=== PATIENT | female | born 1950 | race Caucasian/White ===

== ENCOUNTER 2016-06-04 07:04 | Day surgery (SDC) | payer BC ==
--- NOTE | ~2016-06-04 | EGD ---
EGD REPORT [facility] [address] [place] [address] NAME: SWATI HUMPHRIES : 54 STATUS : REG [facility] [place] PAT#: [id number] AGE: 65 ADM/REG DATE : 06/04/16 MR#: [id number] REPORT SERV DATE: 06/04/16 DICTATED BY: COURTNEY REAVES DATE: 06/04/16 REPORT STATUS : Draft TRANSCRIBED BY: [employer] DATE: 06/04/16 [facility] Patient Name: Swati Humphries Date of : 1950 Attending MD: COURTNEY REAVES MD Procedure Date No Time: 06/04/2016 Procedure: Colonoscopy Indications: Screening for colorectal malignant neoplasm Referring MD: ESPERANZA COOL MD Medicines: as per anesthesia Complications: No immediate complications. Procedure: Pre-Anesthesia Assessment: - ASA Grade Assessment: II - A patient with mild systemic disease. After I obtained informed consent, the scope was passed under direct vision. Throughout the procedure, the patient's blood pressure, pulse, and oxygen saturations were monitored continuously. The PCF [id number] was introduced through the anus and advanced to the cecum, identified by appendiceal orifice and ileocecal valve. The colonoscopy was performed without difficulty. The patient tolerated the procedure. The quality of the bowel preparation was adequate to identify polyps. Findings: The perianal and digital rectal examinations were normal. Multiple small and large-mouthed diverticula were found in the sigmoid colon and in the descending colon. Internal hemorrhoids were found during endoscopy and were mild. Impression: - Diverticulosis in the sigmoid colon and in the descending colon. - Internal hemorrhoids. Recommendation: - Repeat colonoscopy in 10 years for surveillance. Procedure Code(s): --- Professional --- 28868, Colonoscopy, flexible, proximal to splenic flexure; diagnostic, with or without collection of specimen(s) by brushing or washing, with or without colon decompression (separate procedure) Diagnosis Code(s): --- Professional --- K64.8, Other hemorrhoids K57.30, Diverticulosis of large intestine without EGD REPORT [place] [address] [address] [place] [address] NAME: SWATI HUMPHRIES : 54 STATUS : REG [facility] [place] PAT#: [id number] AGE: 65 ADM/REG DATE : 06/04/16 MR#: [id number] REPORT SERV DATE: 06/04/16 DICTATED BY: COURTNEY REAVES. DATE: 06/04/16 REPORT STATUS : Draft TRANSCRIBED BY: [employer] DATE: 06/04/16 perforation or abscess without bleeding Z12.11, Encounter for screening for malignant neoplasm of colon CPT copyright 2013 [employer]. All rights reserved. The codes documented in this report are preliminary and upon worker's compensation claims examiner review may be revised to meet current compliance requirements. COURTNEY REAVES MD 06/04/2016 9:00 AM This report has been signed electronically. Number of Addenda: 0 Note Initiated On: 06/04/2016 8:35 AM Scope Withdrawal Time 0 hours 6 minutes 24 seconds [address] [id number]
[~2016-06-04 07:04] MED LIST: AXID150 MG PO; CALTRA600D PO; CELEBREX2 PO; NORCO1 TA1 PO; OCUVITE PO
== END 2016-06-04 23:59 | disposition home health service (06) ==
LOC: DMU 07:04
PROVIDERS: Internal Medicine Gastroenterology
PROC: 0DJD8ZZ Inspection of Lower Intestinal Tract, Via Natural or Artificial Opening Endoscopic (ICD-10-PCS; principal; 2016-06-04 08:30)
DX: Z12.11 Encounter for screening for malignant neoplasm of colon (principal); K64.8 Other hemorrhoids; K57.30 Diverticulosis of large intestine without perforation or abscess without bleeding; M19.90 Unspecified osteoarthritis, unspecified site